=== PATIENT | female | born 1975 | race Caucasian/White ===

== ENCOUNTER 2017-10-21 07:10 | Emergency (ER) | payer BC ==
[2017-10-21 07:17] VITALS: BP 145/80
[2017-10-21] MEDS ORDERED: Tetracaine 0.5% OPTH.SOL 15ML* BTL ONE (07:27)
[2017-10-21] MEDS ORDERED: Erythromycin OPTH OINT* APPLIC OINT ONE (07:56)
--- NOTE | 2017-10-21 08:17 | ED ---
He Morales Angela, scribed for Sánchez Medina MD on 10/21/17 at 0730 . Throat Pain/Nasal Congestion - HPI Summary HPI Summary: This pt is a 42 y/o female presenting to [facility] c/o left eye pain since yesterday. Pt reports she was cutting a piece of fire wood yesterday and was not wearing eye protection. She notes she might have a piece of wood chip in her left eye. Her right eye was not affected. She rates her pain 6 out of 10 in severity. Pt notes photophobia and prefers to keep her eyes closed in the ED room. - History of Current Complaint Chief Complaint: EDEyeProblem Hx Obtained From: Patient Onset/Duration: Sudden Onset, Lasting Hours, Still Present Severity: Moderate - 6/10 pain Associated Signs And Symptoms: Positive: FB Sensation. Negative: Dysphagia, Drooling, Wheezing, Hoarseness, Sinus Discomfort, Nasal Discharge Cough: None - Allergies/Home Medications Allergies/Adverse Reactions: Allergies Allergy/AdvReac Type Severity Reaction Status Date / Time No Known Allergies Allergy Verified 05/27/14 16:22 PMH/Surg Hx/FS Hx/Imm Hx Endocrine/Hematology History: Denies: Hx Diabetes, Hx Thyroid Disease Cardiovascular History: Denies: Hx Hypertension Respiratory History: Reports: Hx Asthma Denies: Hx Chronic Obstructive Pulmonary Disease (COPD) GI History: Denies: Hx Ulcer - Cancer History Hx Chemotherapy: No Hx Radiation Therapy: No Infectious Disease History: No Infectious Disease History: Denies: Hx Hepatitis, Hx Human Immunodeficiency Virus (HIV), Traveled Outside the [place] in Last 30 Days - Family History Known Family History: Negative: Cardiac Disease, Hypertension, Diabetes - Social History Alcohol Use: Weekly Substance Use Type: Reports: None Hx Tobacco Use: No Smoking Status (MU): Former Smoker Review of Systems Negative: Fever, Chills Eyes: Other - left eye pain Positive: Photophobia Gastrointestinal: Negative Genitourinary: Negative Musculoskeletal: Negative Skin: Negative Neurological: Negative All Other Systems Reviewed And Are Negative: Yes Physical Exam - Summary Physical Exam Summary: VITAL SIGNS: Reviewed. GENERAL: Patient is a well-developed and nourished female who is lying comfortable in the stretcher. Patient is not in any acute respiratory distress. HEAD AND FACE: No signs of trauma. No ecchymosis, hematomas or skull depressions. No sinus tenderness. EYES: PERRLA, EOMI x 2, No nystagmus. Corneal abrasion on the left eye. EARS: Hearing grossly intact. Ear canals and tympanic membranes are within normal limits. MOUTH: Oropharynx within normal limits. NECK: Supple, trachea is midline, no adenopathy, no JVD, no carotid bruit, no c- spine tenderness, neck with full ROM. CHEST: Symmetric, no tenderness at palpation LUNGS: Clear to auscultation bilaterally. No wheezing or crackles. CVS: Regular rate and rhythm, S1 and S2 present, no murmurs or gallops appreciated. ABDOMEN: Soft, non-tender. No signs of distention. No rebound no guarding, and no masses palpated. Bowel sounds are normal. EXTREMITIES: FROM in all major joints, no edema, no cyanosis or clubbing. NEURO: Alert and oriented x 3. No acute neurological deficits. Speech is normal and follows commands. SKIN: Dry and warm Triage Information Reviewed: Yes Vital Signs On Initial Exam: Initial Vitals Temp Pulse Resp BP Pulse Ox 97.5 F 81 16 145/80 98 10/21/17 07:13 10/21/17 07:13 10/21/17 07:13 10/21/17 07:13 10/21/17 07:13 Vital Signs Reviewed: Yes - [place] Coma Scale Coma Scale Total: 15 Diagnostics - Vital Signs Vital Signs Temp Pulse Resp BP Pulse Ox 10/21/17 07:13 97.5 F 81 16 145/80 98 - Laboratory Lab Statement: Any lab studies that have been ordered have been reviewed, and results considered in the medical decision making process. EENT Course/Dx - Course Assessment/Plan: This pt is a 42 y/o female presenting to [facility] c/o left eye pain since yesterday. Pt reports she was cutting a piece of fire wood yesterday and was not wearing eye protection. She notes she might have a piece of wood chip in her left eye. She rates her pain 6/20 in severity. Pt notes photophobia and prefers to keep her eyes closed in the ED room. Since the pt has pain in the left eye, I decided to use tetracaine, after which she was able to open the eye. I examined the eye and there was no foreign body. I placed fluorescein and there was positive uptake in approximate 9 or 10 oclock. I gave the pt erythromycin ointment and a referral for an ditching machine engineer. Pt is feeling better at this time and will follow up with Dr. Davidson. - Differential Diagnoses Differential Diagnoses: Abrasion, Keratitis, Pain of Unknown Etiology, Uveitis - Diagnoses Provider Diagnoses: Corneal abrasion Discharge - Discharge Plan Condition: Stable Disposition: HOME Patient Education Materials: Corneal Abrasion (ED) Referrals: Quinton Davidson MD [Medical Doctor] - Yovana Pagan MD [Primary Care Provider] - Additional Instructions: Please follow up with Dr. Davidson, ditching machine engineer. RETURN TO THE ED FOR ANY WORSENING SYMPTOMS. The documentation as recorded by the He paulino Angela accurately reflects the service I personally performed and the decisions made by me, Sánchez Medina MD.
[2017-10-21] MEDS ORDERED: Erythromycin OPTH OINT* APPLIC OINT RIGHT EYE SCH (09:00)
== END 2017-10-21 08:00 | disposition home or self-care (01) ==
LOC: ED 07:10
DX: S05.02XA Injury of conjunctiva and corneal abrasion without foreign body, left eye, initial encounter (principal); H57.12 Ocular pain, left eye; Z87.891 Personal history of nicotine dependence; W22.8XXA Striking against or struck by other objects, initial encounter; Y93.9 Activity, unspecified; Y92.9 Unspecified place or not applicable
CPT/HCPCS: 99281; A9270-GY